=== PATIENT | female | born 1950 | race Caucasian/White ===

== ENCOUNTER 2017-06-11 17:46 | Inpatient (IN) | payer MEDICARE, OTHER ==
[~2017-06-11] VITALS: Ht 165.1 cm; Wt 84.8 kg
[~2017-06-11 17:46] MED LIST: ASPIRIN325 PO; LOPRESSOR 12.12.5 MG
[2017-06-11 18:00] VITALS: BP 144/72
[2017-06-11] MEDS ORDERED: PRAVACHOL20 MG PO (18:02)
[2017-06-11] MEDS ORDERED: AGGRENOX 25 MG1 EACH PO (18:02)
[2017-06-11] MEDS ORDERED: ASPIR-LOW81 MG PO (18:02)
[2017-06-11 18:29] LABS: ABSOLUTE BASOPHILS 0.1 thou/uL (0.0-0.2); ABSOLUTE EOSINOPHILS 0.1 thou/uL (0.0-0.7); ABSOLUTE LYMPHOCYTES 2.3 thou/uL (0.8-5.3); ABSOLUTE MONOCYTES 0.5 thou/uL (0.0-1.2); ABSOLUTE NEUTROPHILS 3.9 thou/uL (1.6-8.1); EOSINOPHILS 2.1 %; HEMATOCRIT 43.9 % (37.0-47.0); HEMOGLOBIN 14.9 gm/dL (12.0-15.0); LYMPHOCYTES 32.9 %; MCH 32.6 pg (26.0-34.0); MCHC 33.9 g/dL (28.0-37.0); MCV 95.9 fL (80.0-100.0); MONOCYTES 7.5 %; MPV 8.9 fl. (7.2-11.1); NUCLEATED RBCS 0 /100WBC; PLATELET COUNT* 144 thou/uL (150-400); POLYS 56.5 %; RBC 4.58 mil/uL (4.20-5.00); RDW-CV 12.8 % (10.5-14.5)
[2017-06-11 18:39] LABS: ANION GAP 13 mmol/L (7-16); BUN 22 mg/dL (7-18); CALCIUM 8.4 mg/dL (8.5-10.1); CHLORIDE 105 mmol/L (98-107); CO2 22 mmol/L (21-32); CREATININE 1.3 mg/dL (0.6-1.3); GLUCOSE 131 mg/dL (70-99); POTASSIUM 3.5 mmol/L (3.5-5.1); SODIUM 140 mmol/L (136-145)
[2017-06-11 18:41] LABS: APTT 23.3 Seconds (25.0-31.3); PROTIME 9.7 Seconds (9.20-11.50)
[2017-06-11 18:48] LABS: ALBUMIN 3.7 g/dL (3.4-5.0); ALKALINE PHOSPHATASE 89 U/L (46-116); LIPASE 278 U/L (73-393); SGOT 22 U/L (15-37); SGPT 18 U/L (30-65); TOTAL BILIRUBIN 0.3 mg/dL (<0.1-1.0); TOTAL PROTEIN 7.2 g/dL (6.4-8.2); TROPONIN-I LEVEL <0.06 ng/mL (<0.06)
[2017-06-11 21:00] VITALS: BP 125/58
[2017-06-11 21:05] VITALS: BP 130/66
[2017-06-12 00:19] LABS: INFLUENZA A ANTIGEN None Detected (None Detect); INFLUENZA B ANTIGEN None Detected (None Detect)
[2017-06-12 00:20] VITALS: BP 122/63
[2017-06-12 04:12] VITALS: BP 106/47
[2017-06-12 08:15] VITALS: BP 115/52
[2017-06-12 10:04] LABS: ABSOLUTE BASOPHILS 0.1 thou/uL (0.0-0.2); ABSOLUTE MONOCYTES 0.4 thou/uL (0.0-1.2); ABSOLUTE NEUTROPHILS 4.8 thou/uL (1.6-8.1); BASOPHILS 0.8 %; EOSINOPHILS 0.7 %; HEMATOCRIT 39.8 % (37.0-47.0); HEMOGLOBIN 13.6 gm/dL (12.0-15.0); LYMPHOCYTES 16.3 %; MCH 32.7 pg (26.0-34.0); MCHC 34.1 g/dL (28.0-37.0); MONOCYTES 6.3 %; MPV 8.9 fl. (7.2-11.1); NUCLEATED RBCS 0 /100WBC; PLATELET COUNT* 120 thou/uL (150-400); POLYS 75.9 %; RBC 4.14 mil/uL (4.20-5.00); RDW-CV 13.1 % (10.5-14.5); WBC 6.3 thou/uL (4.0-11.0)
[2017-06-12 10:14] LABS: ALBUMIN 3.1 g/dL (3.4-5.0); ALKALINE PHOSPHATASE 76 U/L (46-116); ANION GAP 10 mmol/L (7-16); BUN 15 mg/dL (7-18); CALCIUM 8.2 mg/dL (8.5-10.1); CHLORIDE 109 mmol/L (98-107); CHOLESTEROL 152 mg/dL (<200); CO2 24 mmol/L (21-32); CREATININE 1.1 mg/dL (0.6-1.3); GLUCOSE 88 mg/dL (70-99); HDL CHOLESTEROL 65 mg/dL (>40); LDL CHOLESTEROL 71 mg/dL (<100); SGOT 16 U/L (15-37); SGPT 13 U/L (30-65); SODIUM 143 mmol/L (136-145); TC:HDL 2.3 Ratio (Not establshd); TOTAL BILIRUBIN 0.4 mg/dL (<0.1-1.0); TOTAL PROTEIN 6.1 g/dL (6.4-8.2); TRIGLYCERIDE 80 mg/dL (<150); VLDL 16 mg/dL (<40)
[2017-06-12 10:15] LABS: SERUM ASSESSMENT Clear
[2017-06-12 12:27] VITALS: BP 118/63
--- NOTE | 2017-06-12 12:48 | EKG ---
[place] [address] ELECTROCARDIOGRAM REPORT Name: ANN LAM Room: [address] AD[place] [facility] [id number] Admission: 06/11/17 Attend Phys: Leanne Mendez Discharge: Date of : 50 Report #: [id number] THIS REPORT FOR: //name// [facility] ED Test Date: 2017-06-11 Test Time: 18:16:56 Pat Name: ANN LAM Department: Room: [facility] Gender: F Production Consultant: Melissa MARTINEZ : 1950 Requested By: Elaine Rich Order Number: [id number] MD: Anthony Geiger Measurements Intervals [place] Rate: 50 P: -8 [place]: 242 QRS: -14 QRSD: 91 T: 21 QT: 527 QTc: 481 Interpretive Statements Sinus rhythm Prolonged [place] interval RSR' in V1 or V2, right VCD or RVH Compared to ECG 07/19/2011 09:49:54 First degree AV block now present Right ventricular hypertrophy now present RSR' in V1 or V2 now present Incomplete right bundle-branch block no longer present Electronically Signed On 06-12-2017 12:48:04 CRM MARKETING MANAGER by Anthony Geiger [email or web address] <ELECTRONICALLY SIGNED> By: Anthony Geiger MD, [facility] 06/12/17 1248 1816 1816 Anthony Geiger MD, [facility] /EPI
[2017-06-12 14:54] VITALS: BP 118/63
--- NOTE | 2017-06-13 09:16 | CON ---
[address] [address] CONSULTATION Name: ANN LAM Room: [address] M.R.#: [id number] Admission: 06/11/17 Attend Phys: Leanne Mendez Discharge: 06/12/17 Date of : 50 Report #: [id number] THIS REPORT FOR: //name// CC: Alesha Nobles DO Geovanni Barakat TYPE OF REPORT: Cardiology consultation. PRIMARY CARE PHYSICIAN: Alesha Nobles D.O. INDICATION: Dizziness, nausea and diaphoresis in the setting of bradycardia. HISTORY OF PRESENT ILLNESS: The patient is a very pleasant 66-year-old white female who reports a history of stroke twice in 2011. At that time, she was placed on a combination of aspirin and Aggrenox and has not had recurrence since. She had an episode last night while standing up dizziness, nausea and sweating. With her history of stroke, she was brought by her to the Emergency Room for further evaluation. Workup in the hospital was unremarkable. She had resolution of her symptoms fairly promptly and has not had recurrence. She reports at the time of her strokes in 2011, having angiography, transthoracic and transesophageal echocardiograms. She reports cardiac workup at that time was fairly unremarkable. She has also had a 30-day event monitor twice in the past. Other than showing some bradycardia, she has not had any significant arrhythmias. Here in the hospital on telemetry, she is noted to have heart rates in the low 40s on occasion. She is asymptomatic with this. Presently, her heart rate is in the 50s. She denies chest pain. She is not having shortness of breath. SOCIAL HISTORY: She smokes 2-3 cigarettes daily. She drinks alcohol occasionally. FAMILY HISTORY: Noncontributory. PAST MEDICAL HISTORY: Chronic renal insufficiency, history of stroke as outlined above and hyperlipidemia. PAST SURGICAL HISTORY: None. ALLERGIES: None documented. HOME MEDICATIONS: Aspirin 81 mg daily, Aggrenox 1 tablet b.i.d. and pravastatin 20 mg daily. REVIEW OF SYSTEMS: A 14-point review of systems is positive only for osteoarthritis. Otherwise[place] [address] CONSULTATION Name: ANN LAM Steffany Room: [address]#: [id number] Admission: 06/11/17 Attend Phys: Leanne Mendez Discharge: 06/12/17 Date of : 50 Report #: [id number] PHYSICAL EXAMINATION: VITAL SIGNS: Stable. Blood pressure 115/52, pulse currently 50 and regular. GENERAL: This is a pleasant female, in no distress. Mood and affect appropriate. HEENT: Extraocular muscles intact. Mucous membranes moist. NECK: Shows no jugular venous distention. There are no carotid bruits. CHEST: Reveals clear lung aguirre without wheezes, rales or rhonchi. CARDIOVASCULAR: Reveals a regular rhythm without gallop or murmur. ABDOMEN: Reveals normal bowel sounds. The abdomen is soft and nontender. EXTREMITIES: Shows no edema. Peripheral pulses 2+ and easily palpable. RADIOLOGICAL DATA: A 12-lead EKG shows sinus rhythm with a heart rate of 50. There are no acute ST or T-wave abnormalities. Telemetry monitoring shows sinus bradycardia with heart rates ranging from the 40s to 50s. IMPRESSION AND RECOMMENDATIONS: 1. Sinus bradycardia. Difficult to ascertain whether or not she is having symptoms with this. I have asked her to use her blood pressure cuff and/or sat monitor at home to check her pulse rate when she has recurrent symptoms. At this time, I do not see the need for permanent pacemaker placement. I have given her contact information for our office should she have recurrent episodes as outlined above. 2. History of cerebrovascular accident in 2011. She remains on aspirin and Aggrenox without recurrent stroke. We would continue as outlined above. 3. History of hyperlipidemia. Continue pravastatin at current dose. 4. Tobacco use, smoking cessation advised. <ELECTRONICALLY SIGNED> By: Anthony Geiger MD, FACC 06/13/1716 09 58Micelijah Geiger MD, FACC /nt
== END 2017-06-12 15:20 | disposition home or self-care (01) | DRG 309 ==
LOC: M.ERS 17:46 → M.TBA-ER 20:08 → M.2W 21:00
PROVIDERS: Physician Assistant; ADMIT Internal Medicine
DX: R00.1 Bradycardia, unspecified (principal); E44.1 Mild protein-calorie malnutrition; R42 Dizziness and giddiness; F17.210 Nicotine dependence, cigarettes, uncomplicated; N18.9 Chronic kidney disease, unspecified; E78.5 Hyperlipidemia, unspecified; Z79.82 Long term (current) use of aspirin; Z79.899 Other long term (current) drug therapy; Z86.73 Personal history of transient ischemic attack (TIA), and cerebral infarction without residual deficits; Z71.6 Tobacco abuse counseling; Z68.31 Body mass index [BMI] 31.0-31.9, adult